=== PATIENT | female | born 1990 | race Caucasian/White ===

== ENCOUNTER → 2019-11-30 | Outpatient (CLI) | payer MEDICAID ==
[~2019-11-30] MED LIST: CIPR500T78 PO; CLIN300C3 PO; CLON0.5T3 PO; CPR500T PO; FERR-57 PO; FLUO40CA PO; HYDR1TAB PO; METR500T PO; NAPR-243 PO
--- NOTE | 2019-11-30 13:05 | Diagnostic Imaging Report ---
INDICATION: survey. TECHNIQUE: Multiple real-time grayscale images were obtained over the gravid uterus. COMPARISON: None FINDINGS: There is a single live fetus in breech presentation. heart rate was recorded at 140 bpm. Placenta is anterior. No previa is identified. Amniotic fluid volume appears normal. Cervical length is 3.9 cm. survey demonstrates kidneys, bladder and stomach to be unremarkable. The brain is unremarkable. There is a four-chamber heart. There is a three-vessel cord with normal insertion. spine is unremarkable. Biometrical measurements are as follows: Biparietal 4.51 cm, age 19 weeks 5 days. Head circumference 17.20 cm, age 19 weeks 6 days. Abdominal circumference 14.28 cm, age 19 weeks 5 days. Femur length 2.95 cm, age 19 weeks 1 days. Sonographic estimate age: 19 weeks 5 days. Sonographic estimated date of delivery: 04/20/2020. Estimated Weight: 292 gm (+/- 43 gm). LMP percentile: 30%. heart rate: 140 beats per minute. number: 1 of 1. IMPRESSION: Single live IUP 19-20 weeks gestational age with estimated date of confinement sonographically of 04/20/2020. No complicating features are detected. Dictated by: Dictated on workstation # [id number]
== END ==
LOC: RAD 09:46
PROVIDERS: ATTEND Obstetrics & Gynecology
DX: Z36.89 Encounter for other specified antenatal screening (principal); Z3A.19 19 weeks gestation of pregnancy
CPT/HCPCS: 76805

== ENCOUNTER 2020-04-12 05:31 | Outpatient (RCR) | payer MEDICAID ==
[~2020-04-12] VITALS: Ht 177 cm; Wt 97.7 kg
[~2020-04-12 05:31] MED LIST changes: +BUPR8TAB SL; +PREN-8 PO
[2020-04-14] MEDS ORDERED: ACHD5005 PO (07:21)
[2020-04-14] MEDS ORDERED: IBUP-844 PO (07:21)
[2020-04-14] MEDS ORDERED: DCS100C PO (07:21)
== END 2020-04-12 10:11 | disposition home or self-care (01) ==
LOC: PREOP 05:31
PROVIDERS: ATTEND Obstetrics & Gynecology
DX: Z01.812 Encounter for preprocedural laboratory examination (principal); Z20.822 Contact with and (suspected) exposure to COVID-19
CPT/HCPCS: 87635

== ENCOUNTER 2020-04-14 00:20 | Inpatient (IN) | payer MEDICAID ==
[2020-04-14] VITALS (9 sets, daily range): BP systolic 99–112; BP diastolic 49–67
[~2020-04-14] VITALS: Ht 175.3 cm; Wt 95.3 kg
--- NOTE | 2020-04-14 01:50 | NUR ---
PT REQUESTS PAIN MEDS. STATES HAD COUGHING AND NOW INCREASED INCISIONAL PAIN. LORTAB 2 TAB ADMINISTERED. Addendum: 04/15/20 at 0501 by JULY Katie DELEON RN WRONG DATE. SHOULD BE 04/15/2020
[2020-04-14] MEDS ORDERED: METOCLOPRAMIDE INJ 10 MG/2 ML (REGLAN) ONE (02:50)
[2020-04-14] MEDS ORDERED: CITRIC ACID/SOB CIT (BICITRA) 30 ML UDC ONE (02:50)
[2020-04-14] MEDS ORDERED: FAMOTIDINE 20MG/2ML IV (PEPCID) ONE (02:51)
[2020-04-14] MEDS ORDERED: ceFAZolin 2 GM IV Premixed 50 ML ONE (02:51)
--- NOTE | 2020-04-14 06:00 | NUR ---
JASON MERCADO presented to unit via ambulation from ED, accompanied by adult male for repeat section, HEP C. JASON MERCADO weighed, gowned, voided, and to bed. EFHM and TOCO applied, VS taken. JASON MERCADO oriented to bed controls, call light, TV, heat, and A/C controls.
[2020-04-14] MEDS ORDERED: ceFAZolin 2 GM IV Premixed 50 ML IV ONE (06:15)
[2020-04-14] MEDS ORDERED: LACTATED RINGERS 1,000 ML IV SCH (06:15)
[2020-04-14] MEDS ORDERED: METOCLOPRAMIDE INJ 10 MG/2 ML (REGLAN) IV ONE (06:16)
[2020-04-14] MEDS ORDERED: CITRIC ACID/SOB CIT (BICITRA) 30 ML UDC PO ONE (06:16)
[2020-04-14] MEDS ORDERED: FAMOTIDINE 20MG/2ML IV (PEPCID) IV ONE (06:17)
[2020-04-14 07:01] LABS: BASOPHILS # (AUTO) 0.1 10^3/uL (0.0-0.1); BASOPHILS % (AUTO) 0 % (0-10); EOSINOPHILS # (AUTO) 0.3 10^3/uL (0.0-0.3); EOSINOPHILS % (AUTO) 2 % (0-10); HEMATOCRIT 34 % (35-52); HEMOGLOBIN 11.5 g/dL (11.5-16.0); LYMPHOCYTES # (AUTO) 3.3 10^3/uL (1.0-4.0); LYMPHOCYTES % (AUTO) 28 % (12-44); MEAN CORPUSCULAR HEMOGLOBIN 31 pg (25-34); MEAN CORPUSCULAR HGB CONC 34 g/dL (32-36); MEAN CORPUSCULAR VOLUME 92 fL (80-99); MEAN PLATELET VOLUME 10.4 fL (9.0-12.2); MONOCYTES # (AUTO) 0.8 10^3/uL (0.0-1.0); MONOCYTES % (AUTO) 7 % (0-12); NEUTROPHILS % (AUTO) 61 % (42-75); PLATELET COUNT 213 10^3/uL (130-400); WHITE BLOOD COUNT 11.4 10^3/uL (4.3-11.0)
--- NOTE | 2020-04-14 07:06 | History & Physical-OB ---
OB - Chief Complaint & HPI Date/Time Date of Admission: Date of Admission: Apr 14, 2020 at 06:00 Date seen by a Provider: Apr 14, 2020 Time Seen by a Provider: 07:00 Chief Complaint/History OB-Reason for Admission/Chief: Section Hx : 4 Hx Para: 1 Expected Date of Delivery: Apr 20, 2020 Gestational Age in Weeks: 39 Gestational Age in Days: 1 Indication for : desires repeat Admission Nurse Assessment Rev: Yes Allergies and Home Medications Allergies Coded Allergies: No Known Drug Allergies (Unverified , 04/06/20) Home Medications Buprenorphine HCl 8 Mg Tab.subl, 3 MG SL DAILY, (Reported) Vit W-Ca,Fe,FA(<1 mg) 1 Each Tablet, 1 EACH PO DAILY, (Reported) Patient Home Medication List Home Medication List Reviewed: Yes OB - History Hx of Present Care: Yes Ultrasounds: Normal mid trimester US Obstetrical Complications: None Medical Complications: Other (Chronic Hep C infection) Delivery History Hx Blood Disorders: No (HEPATITIS C) Adverse Rxn to Tranfusion: No (N/A) Patient Past Medical History Hepatitis C Social History/Family History HIV/AIDS: No Recent Infectious Disease Expo: No Sexually Transmitted Disease: No Alcohol Use: Denies Use Recreational Drug Use: Yes (TOBACCO) OB - Admission Exam Physical Exam HEENT: NCAT Heart: Rhythm Normal Lungs: Clear Abdomen: Gravid Extremities: Normal Reflexes: Normal Heart Rate: 130's Accelerations: Accelerations Present Decelerations: No Decelerations Short Term Variability: Present Fisher Trammel Net Variability: Average (6-25) Contractions on Admission: >10 Minutes Apart Intensity: Mild Labs Laboratory Tests Test 04/14/20 06:54 Range/Units White Blood Count 11.4 H 4.3-11.0 10^3/uL Red Blood Count 3.67 L 3.80-5.11 10^6/uL Hemoglobin 11.5 11.5-16.0 g/dL Hematocrit 34 L 35-52 % Mean Corpuscular Volume 92 80-99 fL Mean Corpuscular Hemoglobin 31 25-34 pg Mean Corpuscular Hemoglobin Concent 34 32-36 g/dL Red Cell Distribution Width 12.5 10.0-14.5 % Platelet Count 213 130-400 10^3/uL Mean Platelet Volume 10.4 9.0-12.2 fL Immature Granulocyte % (Auto) 1 % Neutrophils (%) (Auto) 61 42-75 % Lymphocytes (%) (Auto) 28 12-44 % Monocytes (%) (Auto) 7 0-12 % Eosinophils (%) (Auto) 2 0-10 % Basophils (%) (Auto) 0 0-10 % Neutrophils # (Auto) 7.0 1.8-7.8 10^3/uL Lymphocytes # (Auto) 3.3 1.0-4.0 10^3/uL Monocytes # (Auto) 0.8 0.0-1.0 10^3/uL Eosinophils # (Auto) 0.3 0.0-0.3 10^3/uL Basophils # (Auto) 0.1 0.0-0.1 10^3/uL Immature Granulocyte # (Auto) 0.1 0.0-0.1 10^3/uL OB - Assessment/Plan/Diagnosis Assessment Assessment: section Admission Dx 29 yo @ 39.1 weeks Previous Hepatitis C Admission Status: Inpatient Order (span 2 midnights) Reason for Inpatient Admission: Repeat Plan Plan: Section SAÚL HAMMER DO Apr 14, 2020 07:06
[2020-04-14] MEDS ORDERED: ONDANSETRON 4 MG/2 ML (SDV) Z0FRAN IVP PRN (07:15)
[2020-04-14] MEDS ORDERED: MEASLES,MUMPS,RUBELLA 1 EA INJ SC SCH (07:15)
[2020-04-14] MEDS ORDERED: OXYTOCIN PRE-MIX DRIP 500 ML IV SCH (07:15)
[2020-04-14] MEDS ORDERED: BISACODYL 10 MG SUPP (DULCOLAX) PR PRN (07:15)
[2020-04-14] MEDS ORDERED: TETANUS,DIPTH,PERTUSS P/F (BOOSTRIX) 0.5 ML VIAL IM SCH (07:15)
[2020-04-14] MEDS ORDERED: IBUP-844 PO (07:21)
[2020-04-14] MEDS ORDERED: ACHD5005 PO (07:21)
[2020-04-14] MEDS ORDERED: DCS100C PO (07:21)
--- NOTE | 2020-04-14 07:23 | Discharge Inst-Women's Service ---
Discharge Inst-Women's Serv Depart Medication/Instructions New, Converted or Re-Newed RX: RX on Chart Final Diagnosis POD 2 RLTCS Problems Reviewed?: Yes Consults/Follow Up Additional Follow Up: Yes Orders/Referrals Dr. Kisha conn n7-10 days and in 6 weeks Activity Activity: Activity as Tolerated Driving Instructions: No Driving for 1 Week NO SMOKING: NO SMOKING Nothing Inside Vagina: No Douching, No [place], No Tampons Diet Discharge Diet: No Restrictions Symptoms to Report to : Bleeding Excessive, Pain Increased, Fever Over 101 Degrees F, Vaginal Bleeding Increase, Questions/Concerns For Any Problems or Questions: Contact Your Physician Skin/Wound Care Infection Signs and Symptoms: Increased Redness, Foul Odor of Wound, Increased Drainage, Skin Itchy or Has a Rash, Increased Swelling, Temperature Above 101 F Operative Area Clean and Dry: Keep Incision Clean/Dry Stitches/[place]/Dermabond: Dermabond, Care of Stitches Bathing Instructions: SAÚL Duong DO Apr 14, 2020 07:23
--- NOTE | 2020-04-14 07:37 | NUR ---
Bria Aguirre RN @ bedside for PICC line insertion.
--- NOTE | 2020-04-14 07:47 | NUR ---
#18g PICC line inserted by RAUL Ceballos site patent, secured. LR w/o per gravity infusing. pt tolerated procedure.
[2020-04-14] MEDS: LACTATED RINGERS 1,000 ML IV SCH ×2 (07:50→08:22)
--- NOTE | 2020-04-14 07:57 | NUR ---
monitors dc'd. pt ambulated to OB c/s room with OR staff @ side. pt stable with no sx's of distress noted.
[2020-04-14 08:12] LABS: AMPHETAMINE SCREEN, URINE NEGATIVE (NEGATIVE); BARBITURATE SCREEN URINE NEGATIVE (NEGATIVE); BENZODIAZEPINES SCREEN URINE NEGATIVE (NEGATIVE); CANNABINOID SCREEN, URINE NEGATIVE (NEGATIVE); COCAINE SCREEN URINE NEGATIVE (NEGATIVE); METHADONE STAT NEGATIVE (NEGATIVE); METHAMPHETAMINE SCREEN URINE S NEGATIVE (NEGATIVE); OPIATE SCREEN URINE NEGATIVE (NEGATIVE); OXYCODONE STAT NEGATIVE (NEGATIVE); PROPOXYPHENE STAT NEGATIVE (NEGATIVE); TRICYCLIC ANTIDEPRESSANTS SCRE NEGATIVE (NEGATIVE)
[2020-04-14] MEDS: KETOROLAC 30 MG/ML VIAL IV SCH ×3 (09:00→21:03)
--- NOTE | 2020-04-14 10:00 | NUR ---
pt into nursery for bonding with infant. will notify RN when wanting to return to room.
[2020-04-14] MEDS: HYDROcodone/APAP 5 MG/325 MG (LORTAB) TAB PO PRN ×2 (11:06→21:42)
[2020-04-14] MEDS: DOCUSATE SODIUM 100 MG (COLACE) CAP PO SCH ×2 (11:06→21:04)
--- NOTE | 2020-04-14 13:25 | NUR ---
Zamora catheter dc'd per this RN. 500cc dark, yellow urine noted. assisted up to BR. unable to void. ese-care instructions given, returned demonstration.
--- NOTE | 2020-04-14 13:30 | NUR ---
assisted to w/c. to nsy @ time with FOB @ side for bonding with infant.
--- NOTE | 2020-04-14 13:31 | NUR ---
CM/SS: Visited with pt as per Social Service consult related to past drug use. Plan: Pt is from home and will return there when discharged with baby. Summary: Pt is in bed at the time of the visit. Pt is open to share and give information. Pt does report she is seen at [facility], and does have WIC already set up for baby. She has her primary doctor in [facility] - Dr. Yousif - She does have another baby at home - age 3, and has other baby items for child. Father is at the bedside and just feels as if he is tired as he has been up and has not had any sleep. Mom seems to have energy and reports she has been in mental health in the past, and was on medications, and stopped taking them while and will begin talking them again, now that she has had the baby. 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 Post depression is discussed, she did not have any with her last child, but is advised to talk with her doctor if she should have any changes in her mood. She verbalizes understanding. Pt is given information on [place] [employer], and healthy families. Pt reminded to call WIC to let them know that baby has been born. Pt is encouraged to follow up with her appointments and is wished well.
--- NOTE | 2020-04-14 13:49 | OPERATIVE REPORT ---
DATE OF SERVICE: PREOPERATIVE DIAGNOSES: 1. A 29-year-old G4, P1 at 39 weeks gestation. 2. History of chronic hepatitis C. POSTOPERATIVE DIAGNOSES: 1. A 29-year-old G4, P1 at 39 weeks gestation. 2. History of chronic hepatitis C. PROCEDURE: Repeat low transverse section. SURGEON: Kobi Beard DO COMMERCIAL TELLER: Jagruti Crawley MS3. ANESTHESIA: Spinal. ESTIMATED BLOOD LOSS: 400 mL. URINE OUTPUT: 50 mL clear at the end of the procedure. FLUIDS: 1200 mL lactated Ringer's solution. FINDINGS: A live male weighing 6 pounds 12 ounces, Apgars of 8 and 9. Grossly normal appearing uterus, bilateral fallopian tubes and ovaries. SPECIMEN SENT: Placenta. INDICATIONS FOR PROCEDURE: This 29-year-old female is a patient who had sought care in my office. Her was uncomplicated with the exception of chronic hepatitis C. Her viral titers were followed throughout the . There was an acute elevation towards the end of the . Pediatricians were notified of this in preparation for delivery. However, her liver enzymes never elevated. No evidence of acute liver injury was noted throughout her . Therefore, we planned for repeat delivery at 39 weeks. Risks of the procedure have been discussed with the patient in detail throughout her care including risk of bleeding, infection, damage to surrounding structures including, but not limited to bowel, bladder, ureter, kidneys, possible need for reoperation, postoperative complications that may occur, possible need for reoperation, risk from anesthesia, recovery timeframe and even . Everything was discussed with the patient in detail, consent was obtained in the preoperative area, the patient was taken to the operating room. OPERATIVE REPORT IN DETAIL: Once in the operating room, spinal analgesia was found to be adequate, placed in supine position with leftward tilt, prepped and draped in normal sterile fashion. A timeout was performed, and anesthesia was tested. I then make a Pfannenstiel skin incision through the previously existing scar using knife and carried down to underlying fascia using Bovie cautery. The fascial incision extended laterally using Bovie cautery. The superior aspect of the fascial incision was then grasped with Libia clamps, tented up and dissected off the underlying rectus muscles. The inferior aspect of the fascial incision was then grasped with Libia clamps, tented up and dissected off the underlying rectus muscles. Rectus muscle was then dissected down the midline using sharp dissection and Sanchez scissors after which I entered the peritoneum bluntly and extended the peritoneal incision using blunt traction. Greyson ring retractor was placed in the peritoneal incision, which offered excellent lateral sidewall retraction. I identified the lower uterine segment, which was found to be thinned out and make a low transverse incision to the vesicouterine peritoneum and bluntly dissected off the lower uterine segment, creating a bladder flap. I then proceeded with my myotomy until membranes were visualized, at which point I extended the uterine incision laterally and superiorly using bandage scissors. Amniotomy was then performed using an Allis clamp. Clear fluid was noted. The infant was found in vertex presentation. With gentle fundal pressure, the infant's head elevated up to the incision and delivered through the incision. The nares and oropharynx were bulb suctioned. Anterior and posterior shoulders were delivered. Infant was then brought out to the operative field where the cord was doubly clamped and cut, and infant was handed off to waiting nurses in attendance. Cord blood was collected, 3-vessel cord with intact placenta was delivered spontaneously thereafter. IV Pitocin was initiated to facilitate uterine contraction. Uterine fundus became firmer with bimanual massage. The uterus was then exteriorized and cleared of all endometrial clots and debris. I then proceeded with closing the uterine incision using 0 Vicryl suture in running locked fashion. Second layer of imbricating 0 Monocryl was placed. Excellent hemostasis was noted after doing this. I then placed the uterus back in the pelvis and copiously irrigated the pelvis using normal saline. Once again, no active bleeding noted from any of my dissection planes. I placed Interceed antiadhesive over my low transverse incision. I then proceeded with removing the Greyson ring retractor. I then closed the peritoneum using 3-0 Vicryl suture in running fashion. The rectus muscle reapproximated using 3-0 Vicryl suture in interrupted fashion. The fascia was reapproximated using 0 Vicryl suture in running fashion. The subcutaneous tissue was reapproximated using 3-0 plain interrupted subcutaneous stitch and skin reapproximated using 4-0 Monocryl running subcuticular. Dermabond was applied to incision and sterile dressing with adhesive white tape. The patient tolerated the procedure well and sent to recovery area in stable condition. Lap and sponge counts were correct at the end of the procedure. Instrument counts correct as well. Two grams of Ancef given preoperatively for infection prophylaxis. Job ID: [id number] DocumentID: [id number] Dictated Date: 04/14/2020 09:20:42 Central Supply Supervisor Date: 04/14/2020 13:48:48 Dictated By: DO ROSIO PARRY
[2020-04-14] MEDS ORDERED: CATHETER FLUSH 10 ML SYR IV SCH (14:00)
--- NOTE | 2020-04-14 19:10 | NUR ---
PT RETURNING TO ROOM AMB FROM NSY.
--- NOTE | 2020-04-14 19:26 | NUR ---
report given to RAUL Little.
--- NOTE | 2020-04-14 21:05 | NUR ---
COMPLETE SHIFT ASSESSMENT DONE. VSS. PT DENIES ANY C/O'S AT THIS CONSUELO.E WILL ADMINISTER ORDERED TORADOL AND COLACE. PT SU PO WELL. UP AD JEANETTE ON OWN. DENIES ANY NEEDS AT THIS TIME.
--- NOTE | 2020-04-14 21:45 | NUR ---
LORTAB 2 TAB PO ADMINISTERED PT REPORTS PAIN NOT RESOLVED BY TORADOL. PT DENIES ANY FURTHER NEEDS.
[2020-04-15 00:45] VITALS: BP 111/60
[2020-04-15] MEDS: HYDROcodone/APAP 5 MG/325 MG (LORTAB) TAB PO PRN ×4 (01:48→20:13)
--- NOTE | 2020-04-15 01:50 | NUR ---
PT REQUESTS PAIN MEDS. STATES HAD COUGHING AND NOW INCREASED INCISIONAL PAIN. LORTAB 2 TAB ADMINISTERED.
--- NOTE | 2020-04-15 03:35 | NUR ---
PT HAS BEEN RESTING WELL. SCHEDULED TORADOL ADMINISTERED THROUGH PICC LINE. LINE FLUSHES WELL. PT DENIES ANY FURTHER NEEDS AT THIS TIME.
[2020-04-15] MEDS: KETOROLAC 30 MG/ML VIAL IV SCH (03:38)
[2020-04-15 03:45] VITALS: BP 108/58
[2020-04-15 06:17] LABS: BASOPHILS % (AUTO) 0 % (0-10); EOSINOPHILS # (AUTO) 0.1 10^3/uL (0.0-0.3); EOSINOPHILS % (AUTO) 0 % (0-10); HEMATOCRIT 30 % (35-52); HEMOGLOBIN 10.1 g/dL (11.5-16.0); LYMPHOCYTES % (AUTO) 27 % (12-44); MEAN CORPUSCULAR HEMOGLOBIN 31 pg (25-34); MEAN CORPUSCULAR HGB CONC 34 g/dL (32-36); MEAN CORPUSCULAR VOLUME 92 fL (80-99); MEAN PLATELET VOLUME 10.7 fL (9.0-12.2); MONOCYTES % (AUTO) 7 % (0-12); NEUTROPHILS # (AUTO) 9.6 10^3/uL (1.8-7.8); NEUTROPHILS % (AUTO) 65 % (42-75); PLATELET COUNT 224 10^3/uL (130-400); WHITE BLOOD COUNT 14.7 10^3/uL (4.3-11.0)
--- NOTE | 2020-04-15 07:07 | Postpartum Progress Note ---
Note Note Day # 1 Subjective: Patient is without complaints. Ambulating, voiding. Tolerating a regular diet without nausea or vomiting. Normal lochia. Pain is well controlled with oral pain medications. Objective: Physical Exam: General - Alert and oriented, no apparent distress Abdomen - Soft, appropriately tender to palpation, non-distended, fundus firm at umbilicus Extremities - no edema, negative Huyen's bilaterally Incision- c/d/i Assessment: POD 1 RLTCS Acute blood loss anemia Chronic Hep C Plan: Routine care. Encourage breast feeding. Encourage ambulation. Ferrous sulfate supplementation. Plan for discharge tomorrow Vitals - Labs Vital Signs - I&O Vital Signs Date Time Temp Pulse Resp B/P (MAP) Pulse Ox O2 Delivery O2 Flow Rate FiO2 04/15/20 03:45 36.5 70 16 108/58 (75) 98 04/15/20 00:45 36.7 61 16 111/60 (77) 99 04/14/20 21:05 36.6 60 18 106/64 (78) 99 04/14/20 17:40 36.5 65 20 112/67 (82) 96 Room Air 04/14/20 14:30 36.4 53 16 106/62 (77) 95 Room Air 04/14/20 09:48 36.2 16 99/67 (78) 98 Room Air 04/14/20 09:35 35.9 66 16 100/65 (77) 100 Room Air 04/14/20 09:35 35.9 16 100/65 (77) 99 Room Air 04/14/20 09:17 36.2 16 99/49 (66) 98 Room Air 04/14/20 09:03 36.1 16 108/63 (78) 100 Room Air I & O0 04/15/20 07:00 Intake Total 1550 ml Output Total 800 ml Balance 750 ml Labs Laboratory Tests 04/15/20 06:04: White Blood Count 14.7H, Red Blood Count 3.22L, Hemoglobin 10.1L, Hematocrit 30L , Mean Corpuscular Volume 92, Mean Corpuscular Hemoglobin 31, Mean Corpuscular Hemoglobin Concent 34, Red Cell Distribution Width 12.7, Platelet Count 224, Mean Platelet Volume 10.7, Immature Granulocyte % (Auto) 1, Neutrophils (%) (Auto) 65, Lymphocytes (%) (Auto) 27, Monocytes (%) (Auto) 7, Eosinophils (%) (Auto) 0, Basophils (%) (Auto) 0, Neutrophils # (Auto) 9.6H, Lymphocytes # (Auto) 4.0, Monocytes # (Auto) 1.0, Eosinophils # (Auto) 0.1, Basophils # (Auto) 0.0, Immature Granulocyte # (Auto) 0.1 SAÚL HAMMER DO Apr 15, 2020 07:07
--- NOTE | 2020-04-15 08:00 | NUR ---
Dr. Beard here.
[2020-04-15] MEDS: IBUPROFEN 600 MG (MOTRIN) TAB PO SCH ×3 (09:10→22:19)
[2020-04-15] MEDS: DOCUSATE SODIUM 100 MG (COLACE) CAP PO SCH ×2 (09:10→20:13)
[2020-04-15 09:14] VITALS: BP 99/55
--- NOTE | 2020-04-15 09:14 | NUR ---
initial shift assessment completed, see interventions for further. incision edges well approximated, no sx's of infection noted. Dermabond intact.
--- NOTE | 2020-04-15 10:55 | Anesthesia-Regional Post-Op ---
Regional Patient Condition Mental Status: Alert, Oriented x3 Circulation: Same as Pre-Op Headache: Absent Sensation: Full Recovery Motor Block: Absent Post Op Complications Complications None Follow Up Care/Instructions Patient Instructions None needed. Anesthesia/Patient Condition Patient is doing well, no complaints, stable vital signs, no apparent adverse anesthesia problems. No complications reported per nursing. WILLY BROWNING CRNA Apr 15, 2020 10:55
--- NOTE | 2020-04-15 15:23 | NUR ---
report given to RAUL Jiang.
[2020-04-15 15:35] VITALS: BP 104/61
[2020-04-15 20:15] VITALS: BP 112/63
--- NOTE | 2020-04-15 20:15 | NUR ---
INITIAL SHIFT ASSESMENT DONE. VSS. PT DENIES ANY C/O'S. VSS.
--- NOTE | 2020-04-15 22:30 | NUR ---
PT PROVIDING ALL CARES FOR . PT VOICES NO NEEDS.
--- NOTE | 2020-04-16 | NUR ---
PT UP AMB IN ROOM, AND HAS JUST VOIDED. REPORTS LOCHIA REMAINS LIGHT. SLEEPING IN OPEN CRIB IN PT'S ROOM. VS OBTAINED AND STABLE. PT REQUESTS PAIN MEDS. PERCOCET 2 TAB PO GIVEN. Addendum: 04/16/20 at 0235 by JULY Katie DELEON RN LORTAB 2 TAB GIVEN NOT CHARTED PERCOCET.
[2020-04-16 01:10] VITALS: BP 103/55
[2020-04-16] MEDS: HYDROcodone/APAP 5 MG/325 MG (LORTAB) TAB PO PRN ×3 (01:10→11:54)
[2020-04-16] MEDS: IBUPROFEN 600 MG (MOTRIN) TAB PO SCH ×3 (04:30→17:41)
--- NOTE | 2020-04-16 04:30 | NUR ---
MOTRIN ADMINISTERED. PT DENIES ANY FURTHER NEEDS AT THIS TIME.
--- NOTE | 2020-04-16 05:35 | NUR ---
PT REQUESTS PAIN MEDS AND COFFEE. PT ENCOURAGED TO GET SOME REST INFANT IS RESTING RIGHT NOW. PT IS BEGINNING TO GET ANXIOUS AND SHORT. PT STATES "ONE HOUR HERE AND 30 MIN THERE ISN'T GOING TO DO ANYTHING FOR ME. I JUST NEED TO GET HOME SO I CAN GET SOME SLEEP. ENCOURAGEMENT GIVEN.
[2020-04-16 09:30] VITALS: BP 104/69
[2020-04-16] MEDS: DOCUSATE SODIUM 100 MG (COLACE) CAP PO SCH (09:30)
--- NOTE | 2020-04-16 09:30 | NUR ---
initial shift assessment completed, see interventions for further.
--- NOTE | 2020-04-16 09:53 | Postpartum Progress Note ---
Note Note Day # 2 Subjective: Patient is without complaints. Ambulating, voiding. Tolerating a regular diet without nausea or vomiting. Normal lochia. Pain is well controlled with oral pain medications. Objective: Physical Exam: General - Alert and oriented, no apparent distress Abdomen - Soft, appropriately tender to palpation, non-distended, fundus firm at umbilicus Extremities - no edema, negative Huyen's bilaterally Incision -c/d/i Assessment: POD 2 RLTCS Acute blood loss anemia Plan: Routine care. Encourage breast feeding. Encourage ambulation. Ferrous sulfate supplementation. Plan for discharge today Vitals - Labs Vital Signs - I&O Vital Signs Date Time Temp Pulse Resp B/P (MAP) Pulse Ox O2 Delivery O2 Flow Rate FiO2 04/16/20 01:10 36.5 60 18 103/55 (71) 98 Room Air 04/15/20 20:15 36.1 63 16 112/63 (79) 97 Room Air 04/15/20 15:35 36.4 68 16 104/61 (75) 98 Room Air Labs Microbiology 04/14/20 MRSA Screen - Final, Complete MRSA not isolated SAÚL HAMMER DO Apr 16, 2020 09:53
--- NOTE | 2020-04-16 10:05 | NUR ---
here. dismissal orders received.
--- NOTE | 2020-04-16 17:46 | NUR ---
dismissal instructions given, verbalizes understanding. reviewed follow up appointments, Rx's dosage and administration schedule. signature page signed, placed on chart. rooming in information given.
--- NOTE | 2020-04-16 17:59 | NUR ---
Rhogam IM given.
--- NOTE | 2020-04-16 18:00 | NUR ---
dismissed to boarder status until infant dismissed from hospital
== END 2020-04-16 18:00 | disposition home or self-care (01) | DRG 787 ==
LOC: LDRP 06:00 → WS 14:46 → LDRP 14:46
PROVIDERS: ADMIT Obstetrics & Gynecology; ATTEND Obstetrics & Gynecology
PROC: 10D00Z1 Extraction of Products of Conception, Low, Open Approach (ICD-10-PCS; principal; 2020-04-14 07:30)
DX: O34.211 Maternal care for low transverse scar from previous cesarean delivery (principal); O98.42 Viral hepatitis complicating childbirth; D62 Acute posthemorrhagic anemia; Z3A.39 39 weeks gestation of pregnancy; Z37.0 Single live birth; B18.2 Chronic viral hepatitis C; O90.81 Anemia of the puerperium
CPT/HCPCS: 36415; 76937; 80306; 83033; 85025; 86850; 86900; 86901; 87081